=== PATIENT | male | born 1955 | race Caucasian/White ===

== ENCOUNTER → 2019-10-02 | Day surgery (SDC) | payer OTHER ==
[~2019-10-02] VITALS: Ht 172.7 cm; Wt 154.2 kg
[~2019-10-02] MED LIST: ASPI-404 PO; GLYCOPYRROLATE 0.2 MG/ML 1ML VIAL ONE; HYDR25TA4 PO; HYDROmorphone HCL 2 MG/ML VL IV PRN; KETAMINE HCL 10 ML ONE; LIDOCAINE 1% (LOCAL ANESTH.) PF 5ml SDV ONE; LIDOCAINE 1% HCL (LOCAL ANESTH.) INJ 20ML MDV ONE; METOCLOPRAMIDE HCL 5MG/ml INJ 2ml VIAL ONE; MIDAZOLAM HCL 1MG/1ML-2 ML VIAL ONE; NALOXONE HCL 0.4 MG/ML VIAL IV PRN; NIFE90TA49 PO; ONDANSETRON HCL 4 MG/2 ML VIAL IV PRN; PRAV20TA3 PO; PROPOFOL 10 MG/ML 20 ML IV ONE; SUCCINYLCHOLINE CHLORIDE 20 MG/ML 10ML VIAL IV ONE; diphenhdrAMINE HCL 50 MG/1 ML VL ONE
[2019-10-02 08:47] VITALS: BP 138/69
== END | disposition home or self-care (01) ==
LOC: SUR 06:05
DX: C44.41 Basal cell carcinoma of skin of scalp and neck (principal); I10 Essential (primary) hypertension; E66.01 Morbid (severe) obesity due to excess calories; E78.5 Hyperlipidemia, unspecified; G47.33 Obstructive sleep apnea (adult) (pediatric); Z98.890 Other specified postprocedural states; Z79.82 Long term (current) use of aspirin; Z79.899 Other long term (current) drug therapy; Z68.43 Body mass index [BMI] 50.0-59.9, adult
CPT/HCPCS: 11623; J0330; J1200; J2001; J2250; J2704; J2765